=== PATIENT | female | born 1950 | race Caucasian/White ===

== ENCOUNTER 2017-05-16 09:27 | Outpatient (CLI) | payer MEDICARE ==
--- NOTE | 2017-05-16 09:54 | MMO ---
BILATERAL SCREENING MAMMOGRAM 05/16/17 HISTORY: 66-year-old female for screening mammography. COMPARISON: 04/26/16, 04/24/16, 02/22/15, 02/15/14. FINDINGS: Bilateral MLO and CC views of the breast shows scattered fibroglandular breast tissue. Benign appear ing calcifications are seen in both breasts. There is no evidence of suspicious mass, suspicious clu ster of microcalcifications, or area of architectural distortion. Interpretation of this mammogram was performed with the assistance of computer aided detection. IMPRESSION: BI-RADS 2: Benign Finding(s) Routine annual screening mammography (for women over age 40). POS: [facility]
== END 2017-05-16 09:28 | disposition home or self-care (01) ==
LOC: SCSMAMMO 09:27
PROVIDERS: ATTEND Family Medicine
DX: Z12.31 Encounter for screening mammogram for malignant neoplasm of breast (principal)
CPT/HCPCS: 77067; G0202

== ENCOUNTER 2017-10-20 10:33 | Emergency (ER) | payer MEDICARE ==
[2017-10-20 10:55] LABS: Bilirubin Negative (Negative); Blood, Urine Trace (Negative); Clarity Clear (Clear); Glucose, Urine (Dipstick) Negative (Negative); Leukocyte Negative (Negative); Nitrite Negative (Negative); Protein, Urine (Dipstick) Negative (Neg-Trace); Specific Gravity, Urine 1.025 (1.005-1.030); Urobilinogen 0.2 mg/dL (0.2-1.0)
[2017-10-20 11:01] LABS: RBC/HPF 0-3 HPF (0-3); WBC/HPF None Seen HPF (0-3)
[2017-10-20 11:02] LABS: Bacteria/HPF 1+ HPF (None Seen)
--- NOTE | 2017-10-20 11:49 | RAD ---
CHEST 1 VIEW: Date: 10/20/17 HISTORY: Cough. COMPARISON: None. FINDINGS: Normal cardiac silhouette. Pulmonary vessels and hilum are normal. Hazy opacification left lung base, which obscures left hemidiaphragm. Pleural and parenchymal changes are suspected. Adequate aeration of the right lung. No pneumothorax. IMPRESSION: Hazy opacification left lung base as defined above. Continued surveillance to ensure resolution is re commended. POS: [facility]
--- NOTE | 2017-11-02 21:01 | EKG ---
Test Reason : Blood Pressure : / mmHG Vent. Rate : 081 BPM Atrial Rate : 081 BPM P-R Int : 118 ms QRS Dur : 072 ms QT Int : 344 ms P-R-T Axes : 054 030 065 degrees QTc Int : 399 ms Poor data quality, interpretation may be adversely affected Normal sinus rhythm Possible Left atrial enlargement Borderline ECG Confirmed by MAXINE COTO, LUIS MIGUEL ([id number]), editor producer ILDEFONSO OSWALD ([id number] on 11/02/2017 9:01:17 PM Referred By: Confirmed By:LUIS MIGUEL GOODMAN MD
== END 2017-10-20 11:50 | disposition home or self-care (01) ==
LOC: SCSER 10:33
DX: J18.9 Pneumonia, unspecified organism (principal); E03.9 Hypothyroidism, unspecified; I10 Essential (primary) hypertension; E78.5 Hyperlipidemia, unspecified; F41.9 Anxiety disorder, unspecified
CPT/HCPCS: 71045; 81003; 81015; 93005

== ENCOUNTER 2018-05-01 16:00 | Outpatient (CLI) | payer MEDICARE | END 2018-05-01 16:01 | disposition home or self-care (01) | LOC: SLEEPLAB 16:00 | PROVIDERS: ATTEND Family Medicine | DX: G47.33 Obstructive sleep apnea (adult) (pediatric) (principal); G47.00 Insomnia, unspecified; R53.83 Other fatigue; G47.10 Hypersomnia, unspecified | CPT/HCPCS: 95806 ==

== ENCOUNTER 2018-09-04 10:51 | Outpatient (CLI) | payer MEDICARE ==
[2018-09-04 11:48] LABS: Bilirubin Negative (Negative); Blood, Urine Trace (Negative); Glucose, Urine (Dipstick) Negative (Negative); Leukocyte Small (Negative); Nitrite Positive (Negative); Protein, Urine (Dipstick) Negative (Neg-Trace); Urobilinogen 0.2 mg/dL (0.2-1.0)
[2018-09-04 11:51] LABS: Clarity Hazy (Clear)
[2018-09-04 11:56] LABS: Bacteria/HPF 3+ HPF (None Seen); RBC/HPF 0-3 HPF (0-3); WBC/HPF 21-50 HPF (0-3)
--- NOTE | 2018-09-04 13:27 | ULT ---
BILATERAL RENAL ULTRASOUND COMPLETE: History: Urinary tract infection, incontinence, incomplete bladder emptying. FINDINGS: The right kidney measures 13.2 x 5.3 x 5.2 cm. Left kidney measures 11.9 x 6.2 x 5.6 cm. No solid or cystic renal mass. No significant hydronephrosis. Pre void bladder volume equals 354 cc a nd post void bladder volume equals 203 cc. IMPRESSION: Large post void residual. Unremarkable kidneys without hydronephrosis or perinephric process or solid or cystic mass. POS: [facility]
== END 2018-09-04 10:52 | disposition home or self-care (01) ==
LOC: SCSULT 10:51
PROVIDERS: ATTEND Urology
DX: N39.0 Urinary tract infection, site not specified (principal); N39.46 Mixed incontinence; R33.9 Retention of urine, unspecified
CPT/HCPCS: 76770; 81001; 87077; 87086; 87186

== ENCOUNTER 2019-04-24 14:44 | Outpatient (CLI) | payer MEDICARE ==
--- NOTE | 2019-04-24 16:03 | ULT ---
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 FINDINGS: The thyroid isthmus measures 5 mm, stable when compared to the prior exam. The right lobe of thyroid gland measures 3.9 x 2.2 x 1.1 cm and the left lobe measures 3.8 x 1.5 x 1. 6 cm. A hypoechoic nodule, likely representing a subcentimeter cyst, is noted within the right aspect of th e thyroid isthmus measuring 5 x 4 x 3 mm. A vague hypoechoic solid nodule is noted within the lateral aspect of the midportion of the right lob e measuring approximately 1.3 x 0.9 x 1.1 cm, which does not appear significantly changed when compared to the 2016 examination. In addition, within the inferior aspect of the right lobe there is a solid nodule measuring approximately 7 x 7 x 8 mm, not significantly changed when compared to the 2016 examination. No new nodules are noted on the right. There is a vague hyperechoic solid nodule suspected within the inferior aspect of the left lobe of th e thyroid gland measuring 7 x 9 x 7 mm, not definitely seen on the prior examination. This could represent a new nodule or may have been nonvisualized on the prior examination secondary to technical factors IMPRESSION: 2 solid nodules are noted within the right lobe of the thyroid gland, measuring up to 1.3 cm, not significantly changed when compared to the 2016 examination. There is a vague hyperechoic nodule suspected inferiorly within the left lobe which measures up to 9 mm and may be new. Based on T IRADS classification, the left thyroid nodule is high RADS category 3-mildly suspicious. As it is less than 1.5 cm, no imaging follow-up is recommended.
== END 2019-04-24 14:45 | disposition home or self-care (01) ==
LOC: SCSULT 14:44
PROVIDERS: ATTEND Family Medicine
DX: E04.2 Nontoxic multinodular goiter (principal)
CPT/HCPCS: 76536

== ENCOUNTER 2020-01-15 12:28 | Outpatient (CLI) | payer MEDICARE ==
--- NOTE | 2020-01-15 14:35 | MRI ---
LEFT FOOT MRI WITHOUT IV CONTRAST: HISTORY: Peroneal tendinitis, left lateral foot pain and swelling. FINDINGS: Evaluation of the flexor, extensor, and peroneus tendons is somewhat less than optimum on this study since it was performed as a foot exam rather than an ankle hindfoot exam which would have been more o ptimal for evaluating the tendons including the peroneus tendons. There is very severe abnormal thickening and increased signal within the peroneus longus tendon from the myotendinous region down to the level of the distal fibula where there is a complete tear of the peroneus longus tendon with associated retraction and a small focal 0.4 cm diameter area of ossificat ion at the distal torn tendon. No intact peroneus longus tendon is seen from the inferior fibula andrews n to the cubital tunnel. Peroneus brevis tendon appears intact. There is some associated tenosynovi tis. Marked abnormal thickening of the plantar fascia, evidence for fairly extensive plantar fasciop athy. The Achilles tendon appears intact. Visualized flexor and extensor tendons appear intact. Ar throsis and degenerative changes of the foot. No evidence for talar dome osteochondral lesion. Sinu s tarsi appears unremarkable. Spring ligament region appears intact. IMPRESSION: Irregular retracted complete peroneus longus tendon tear with some severe associated tendinopathy fro m the level of the distal fibula up into the myotendinous region. Severe plantar fasciopathy. POS: [facility]
== END 2020-01-15 12:29 | disposition home or self-care (01) ==
LOC: SCSMRI 12:28
PROVIDERS: ATTEND Podiatrist Foot & Ankle Surgery
DX: M76.72 Peroneal tendinitis, left leg (principal); R60.0 Localized edema; S96.912A Strain of unspecified muscle and tendon at ankle and foot level, left foot, initial encounter; M72.2 Plantar fascial fibromatosis; M67.972 Unspecified disorder of synovium and tendon, left ankle and foot

== ENCOUNTER 2022-10-19 08:45 | Outpatient (CLI) | payer MEDICARE | END 2022-10-19 08:46 | LOC: PET 08:45 | PROVIDERS: ATTEND Family Medicine | DX: R91.1 Solitary pulmonary nodule (principal) | CPT/HCPCS: 78815; A9552 ==